=== PATIENT | female | born 1955 | race Caucasian/White ===

== ENCOUNTER 2020-07-05 11:56 | Emergency (ER) | payer OTHER ==
[~2020-07-05] VITALS: Ht 160 cm; Wt 80.9 kg
[2020-07-05] MEDS ORDERED: METH-38 PO (12:41)
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
[2020-07-05 12:51] VITALS: BP 165/74
== END 2020-07-05 12:50 | disposition home or self-care (01) ==
LOC: ER 11:56
DX: S16.1XXA Strain of muscle, fascia and tendon at neck level, initial encounter (principal); I10 Essential (primary) hypertension; E03.9 Hypothyroidism, unspecified; Z88.0 Allergy status to penicillin; V89.2XXA Person injured in unspecified motor-vehicle accident, traffic, initial encounter; Y93.89 Activity, other specified; Y92.488 Other paved roadways as the place of occurrence of the external cause; Y99.8 Other external cause status
CPT/HCPCS: 99283